=== PATIENT | female | born 1960 | race Two or more races ===

== ENCOUNTER → 2020-05-05 08:00 | Outpatient (CLI) | payer OTHER ==
[~2020-05-05] VITALS: Ht 157.5 cm; Wt 69.9 kg
[~2020-05-05 08:00] MED LIST: CALCIUM PO; CLONAZEPAM1 MG PO; COLACE100 MG PO; CRESTOR5 MG PO; FLEXERIL PO; PERCOCET 5-3251 EACH PO; SYNTHROID75 MCG PO; TOPROL XL25 M1 PO; VITAMIN D3 PO
== END | disposition home or self-care (01) ==
LOC: LAB 08:00 → SURH 05-10 10:30 → EDSTATUS 05-12 10:30
PROVIDERS: ATTEND Orthopaedic Surgery Orthopaedic Surgery of the Spine
DX: M50.022 Cervical disc disorder at C5-C6 level with myelopathy (principal); Z20.828 Contact with and (suspected) exposure to other viral communicable diseases

== ENCOUNTER 2021-05-11 10:45 | Inpatient (IN) | payer OTHER ==
[2021-05-17] MEDS ORDERED: COLACE100 MG PO (14:59)
[2021-05-17] MEDS ORDERED: MEDROLPACK PO (14:59)
[2021-05-17] MEDS ORDERED: AMOX-CLAV 875-1 EACH PO (14:59)
[2021-05-17] MEDS ORDERED: PERCOCET 5-3251 EACH PO (14:59)
[2021-05-17] MEDS ORDERED: NEURONTIN800 MG PO (14:59)
[2021-05-17] MEDS ORDERED: DIAZEPAM5 MG PO (14:59)
== END 2021-05-18 13:00 | disposition home or self-care (01) | DRG 460 ==
LOC: O/R 05-17 07:34 → SURH 05-17 10:45 → O/R 05-18 13:00
PROVIDERS: ADMIT Orthopaedic Surgery Orthopaedic Surgery of the Spine; ATTEND Orthopaedic Surgery Orthopaedic Surgery of the Spine
PROC: 00NY0ZZ Release Lumbar Spinal Cord, Open Approach (ICD-10-PCS; 2021-05-17)
PROC: 07DR0ZZ Extraction of Iliac Bone Marrow, Open Approach (ICD-10-PCS; 2021-05-17)
PROC: 0SG3071 Fusion of Lumbosacral Joint with Autologous Tissue Substitute, Posterior Approach, Posterior Column, Open Approach (ICD-10-PCS; principal; 2021-05-17 17:30)
DX: M43.17 Spondylolisthesis, lumbosacral region (principal); M54.17 Radiculopathy, lumbosacral region; M48.07 Spinal stenosis, lumbosacral region